=== PATIENT | female | born 1970 | race African-American/Black ===

== ENCOUNTER 2016-09-15 19:02 | Emergency (ER) | payer SELFPAY ==
[~2016-09-15] VITALS: Ht 162.6 cm; Wt 92.0 kg
[~2016-09-15 19:02] MED LIST: Z.0.NO CURRENT MEDS
[2016-09-15 19:05] VITALS: BP 167/82; PULSE 84; RESP 15; TEMP 98.5; O2SAT 98
== END 2016-09-15 20:00 | disposition left against medical advice (07) ==
LOC: NED 19:02
DX: M79.1 Myalgia (principal); R05 Cough; R42 Dizziness and giddiness; Z53.21 Procedure and treatment not carried out due to patient leaving prior to being seen by health care provider
CPT/HCPCS: 99281